=== PATIENT | female | born 1960 | race Caucasian/White ===

== ENCOUNTER 2016-07-10 19:56 | Emergency (ER) | payer BC, OTHER ==
[~2016-07-10] VITALS: Ht 167.6 cm; Wt 105.0 kg
[~2016-07-10 19:56] MED LIST: ZITH250T PO
[2016-07-10 20:26] VITALS: BP 121/79; PULSE 68; RESP 18; TEMP 98.5; O2SAT 99
[2016-07-10] MEDS ORDERED: BACT800T5 PO (20:52)
--- NOTE | 2016-07-10 20:57 | PD ---
HPI Chief Complaint: Bite or Sting Time Seen by Provider: 20:53 Travel History International Travel<30 days: No Contact w/Intl Traveler<30days: No Traveled to known affect area: No History of Present Illness HPI 55-year-old female that presents to the ED for evaluation of possible insect bite to the right index finger. Patient states that she was in some yard work and she believes that she might have been bit by something but she is not sure. Per patient it started getting worse today. Per patient she's been working today and she noticed that the pain and swelling has been getting worse. She denies any history of MRSA or IV drug abuse. No history of immunosuppression. Patient states that she has not had a tetanus booster secondary to bad reaction to it in the past. She denies any allergies to medication. Per patient the pain is 5 out of 10 on the finger. Able to move it fully. Denies any numbness , tingling, weakness. No allergies to medication. PFSH Past Medical History Medical History: Denies Significant Hx Diminished Hearing: No Tetanus Vaccination: > 5 Years Influenza Vaccination: Yes ?: Not Past Surgical History Section: Yes Social History Alcohol Use: Yes (RARE) Tobacco Use: No Substance Use: No Allergies-Medications (Allergen,Severity, Reaction): Coded Allergies: No Known Allergies (Unverified , 07/10/16) Reported Meds & Prescriptions Reported Meds & Active Scripts Active Bactrim DS (Sulfamethoxazole-Trimethoprim) 800-160 Mg Tab 1 Tab PO BID 10 Days Review of Systems Except as stated in HPI: all other systems reviewed are Neg Physical Exam Narrative GENERAL: SKIN: Warm and dry. HEAD: Atraumatic. Normocephalic. EYES: Pupils equal and round. No scleral icterus. No injection or drainage. ENT: No nasal bleeding or discharge. Mucous membranes pink and moist. NECK: Trachea midline. No JVD. CARDIOVASCULAR: Regular rate and rhythm. RESPIRATORY: No accessory muscle use. Clear to auscultation. Breath sounds equal bilaterally. GASTROINTESTINAL: Abdomen soft, non-tender, nondistended. Hepatic and splenic margins not palpable. MUSCULOSKELETAL: Extremities without clubbing, cyanosis, or edema. No obvious deformities. Full range of motion of all fingers including the right index finger. Patient does have an area of erythema on the dorsal aspect of the right hand. Patient has what appears to be a small pustule-like lesion less than 0.10 mm. Some purulence observed from it. Good capillary refill. Full range of motion of the digit. Warm to touch. Patient does have an area of erythematous about 1 cm in diameter. NEUROLOGICAL: Awake and alert. No obvious cranial nerve deficits. Motor grossly within normal limits. Five out of 5 muscle strength in the arms and legs. Normal speech. PSYCHIATRIC: Appropriate mood and affect; insight and judgment normal. Data Data Last Documented VS Vital Signs Date Time Temp Pulse Resp B/P Pulse Ox O2 Delivery O2 Flow Rate FiO2 07/10/16 20:26 98.5 68 18 121/79 99 Orders Wound Culture And Gram Stain (07/10/16 20:51) Wound Care (07/10/16 20:51) MDM Medical Decision Making Medical Screen Exam Complete: Yes Emergency Medical Condition: Yes Medical Record Reviewed: Yes Differential Diagnosis Abscesses versus insect bite versus cellulitis Narrative Course 55-year-old female that presents to the ED for evaluation of possible insect bite. Patient was properly examined and was found to have signs and symptoms which appeared to be consistent with early infection from unclear source. Possible insect bite possible. At this time I recommend trial of Bactrim. I was able to express some fluid from the pustule and culture was taken from this. At this time I recommend ice or warm compresses. Motrin or Tylenol for pain. Wound care. Follow with PCP. See ED worsening symptoms. Diagnosis Primary Impression: Infected insect bite Qualified Code: W57.XXXA - Infected insect bite, initial encounter Patient Instructions: General Instructions Additional Instructions: Motrin or Tylenol for pain. Apply ice to the area. Take antibiotic as prescribed. He can apply antibiotic ointment as needed. Follow with PCP. See ED for any worsening symptoms. Med/Other Pt SpecificInfo: Prescription(s) given Scripts Sulfamethoxazole-Trimethoprim (Bactrim DS)800-160 Mg Tab1 Tab PO BID 10 Days Prov:Shelli Reinoso DO 07/10/16 Disposition: 01 DISCHARGE HOME Condition: Stable Colin Benedict Jul 10, 2016 20:57
== END 2016-07-10 21:00 | disposition home or self-care (01) ==
LOC: PHEFT 19:56
DX: S60.460A Insect bite (nonvenomous) of right index finger, initial encounter (principal); W57.XXXA Bitten or stung by nonvenomous insect and other nonvenomous arthropods, initial encounter; Y93.H2 Activity, gardening and landscaping; Y92.017 Garden or yard in single-family (private) house as the place of occurrence of the external cause; Y99.9 Unspecified external cause status
CPT/HCPCS: 86403; 87070; 87186; 87205; 99283